=== PATIENT | male | born 1970 | race Caucasian/White ===

== ENCOUNTER 2022-05-28 06:27 | Day surgery (SDC) | payer OTHER, SELFPAY ==
[2022-01-24 09:10] VITALS: BMI 34.7
[2022-05-10 14:27] VITALS: BMI 34.2
--- NOTE | 2022-05-25 14:40 | PM.HPGS ---
History of Present Illness History of Present Illness Consent: Risks, benefits, and alternatives have been discussed and questions answered. Patient agrees to proceed with procedure. Chief complaint: History of colon polyp Narrative: Jay Yoder is a 51 year old male Referred for colon cancer screening. Three years ago he had removal of 6 polyps, most of which were serrated polyps. Review of Systems Review of Systems: All systems reviewed & are unremarkable except as noted in HPI and below PMFSH Past Medical History Medical History Prediabetes Family History Family History Grandparent Acute myocardial infarction Cerebrovascular accident Malignant neoplasm of prostate Mother Diabetes mellitus Social History Social History Smoking status: Never smoker Second hand tobacco smoke exposure: No Alcohol intake: current Substance use: never Substance use type: does not use Living arrangements: with family Gender identity (if verbalized by the patient): Male Sexual Orientation (if Verbalized by the Patient): Straight or Heterosexual Spiritual care concerns: No Agree to blood products: Yes Meds Home Medications and Allergies Home Medications Medication Instructions Recorded Confirmed Type No Home Medications 08/30/21 05/28/22 History Allergies Allergy/AdvReac Type Severity Reaction Status Date / Time No Known Allergies Allergy Mild Verified 05/28/22 06:48 Exam Const: General: alert Orientation/consciousness: patient oriented x3 Resp: Auscultation: clear to auscultation bilaterally Cardio: Rhythm: regular rhythm GI: GI Palp: Yes Soft to palpation and No Tenderness to palpation present (GI) Neuro: General: patient oriented x3 Assessment and Plan Assessment and plan (1) Colon cancer screening: Code(s): Z12.11 - Encounter for screening for malignant neoplasm of colon Status: Acute Assessment and Plan: Colonoscopy with possible biopsy or polypectomy or cautery or injection of substances.
[2022-05-28 06:45] VITALS: BP 126/87; PULSE 67; RESP 16; TEMP 36; O2SAT 100
--- NOTE | 2022-05-28 06:58 | P.PNAN_ITS ---
Anes - Initial Pre Proc Eval Procedure: Operation Date: 05/28/22 08:00 Proposed Procedures p Screening Colonoscopy - Ab Patel MD Date/Time: 05/28/22 06:58 Surgeon: Ab Patel MD Pre Op Diagnosis: History of colon polyp Patient Data Age: 51 Gender: M Height: 1.75 m Weight: 105 kg Allergies Allergy/AdvReac Type Severity Reaction Status Date / Time No Known Allergies Allergy Mild Verified 05/28/22 06:48 Home Medications Medication Instructions Recorded Confirmed Type No Home Medications 08/30/21 05/28/22 History Patient hx anesthesia problems: none Family hx anesthesia problems: none Results Review: All pre-operative results and documents have been reviewed as part of the pre- operative evaluation. [facility] Past Medical History Medical History Prediabetes Family History Family History Grandparent Acute myocardial infarction Cerebrovascular accident Malignant neoplasm of prostate Mother Diabetes mellitus Social History Social History Smoking status: Never smoker Second hand tobacco smoke exposure: No Alcohol intake: current Substance use: never Substance use type: does not use Living arrangements: with family Gender identity (if verbalized by the patient): Male Sexual Orientation (if Verbalized by the Patient): Straight or Heterosexual Spiritual care concerns: No Agree to blood products: Yes Anes - Eval Final PreProcedure Day of Procedure 05/28/22 06:58 Patient weight: obese Heart: regular rate and rhythm Lungs: clear to auscultation Airway: Mallampati scale class II Neurological: alert and oriented Last oral intake: >/= 8 hours ASA classification: II Emergent: no Anesthetic plan: proceed Anesthesia type and monitoring: general GIVS and standard monitoring Results Review: All pre-operative results and documents have been reviewed as part of the pre- operative evaluation. Informed Consent: The patient's anesthetic plan and its attendant risks and benefits were discussed with the patient/family/POA. Questions were solicited and answers provided to the satisfaction of the patient/family/POA.
[2022-05-28] MEDS: LACTATED RINGERS 1,000 ML 150 ML IV CONT (07:06)
[2022-05-28 08:02] VITALS: BP 116/85; PULSE 72; RESP 16; O2SAT 98
[2022-05-28 08:12] VITALS: BP 117/84; PULSE 67; RESP 18; O2SAT 100
[2022-05-28 08:23] VITALS: BP 116/84; PULSE 76; RESP 18; O2SAT 100
--- NOTE | 2022-05-28 11:38 | WPDANESPN ---
Anes - Prog Note Post-Op Date/Time: 05/28/22 11:38 Cardiovascular status: normal Respiratory status: normal Airway patency: baseline Mental status: baseline Post-Op hydration status: normal Vital Signs: Last Vital Signs Temp 36.0 C L 05/28/22 06:45 Pulse 76 05/28/22 08:23 Resp 18 05/28/22 08:23 BP 116/84 05/28/22 08:23 Pulse Ox 100 05/28/22 08:23 O2 Del Method Room Air 05/28/22 08:23 Pain Score (VAS): 0 Post-procedural complaints: none Patient Feedback: Patient satisfied with anesthetic care. Other Findings: Patient vital signs back to baseline. Patient denies nausea and vomiting. Patient's pain under control. Patient OK for discharge.
== END 2022-05-28 08:44 | disposition home or self-care (01) ==
PROVIDERS: PCP Family Medicine Adolescent Medicine; Visit Provider Internal Medicine Gastroenterology
PROC: 0DJD8ZZ Inspection of Lower Intestinal Tract, Via Natural or Artificial Opening Endoscopic (ICD-10-PCS; CPT 45378; principal; 2022-05-28 08:00)
DX: Z12.11 Encounter for screening for malignant neoplasm of colon (principal)
CPT/HCPCS: 45380

== ENCOUNTER 2022-05-28 08:00 | Outpatient (NON) | payer OTHER, SELFPAY | END 2022-05-28 08:01 | disposition home or self-care (01) | LOC: ANHLAB 05-29 07:59 | PROVIDERS: PCP Family Medicine Adolescent Medicine; Visit Provider Internal Medicine Gastroenterology | DX: Z12.11 Encounter for screening for malignant neoplasm of colon (principal); D12.8 Benign neoplasm of rectum | CPT/HCPCS: 88305 ==